=== PATIENT | female | born 1970 | race Caucasian/White ===

== ENCOUNTER 2019-04-30 15:37 | Observation (INO) ==
[2019-04-30 16:11] LABS: Basophils # 0.1 K/mcL (0.0-0.2); Basophils % 0.8 %; Eosinophils % 0.1 %; Hematocrit 37.7 % (35.3-44.9); Hemoglobin 13.3 g/dL (11.5-15.4); Immature Granulocytes % 0.3 % (0-4); Lymphocytes # 1.6 K/mcL (0.6-4.6); Lymphocytes % 22.7 %; Mean Corpuscular HGB Conc 35.3 g/dL (31.6-35.5); Mean Corpuscular Hemoglobin 32.6 pg (28.0-33.3); Mean Corpuscular Volume 92.4 fL (83.0-100.0); Mean Platelet Volume 9.4 fL (9.4-12.4); Monocytes # 0.5 K/mcL (0.0-1.3); Monocytes % 6.6 %; Platelet Count 232 K/mcL (140-400); Red Blood Count 4.08 M/mcL (3.82-4.97); Red Cell Distribution Width 11.9 % (11.5-14.5); Segmented Neutrophils % 69.5 %; White Blood Count 7.2 K/mcL (4.3-11.1)
[2019-04-30 16:29] LABS: Alanine Aminotransferase 9 Units/L (7-52); Albumin 3.8 g/dL (3.5-5.7); Albumin/Globulin Ratio 1.3 (1.1-2.2); Alkaline Phosphatase 82 Units/L (34-104); Aspartate Amino Transferase 18 Units/L (13-39); BUN/Creatinine Ratio 17 (6-26); Bilirubin,Direct 0.1 mg/dL (0.0-0.2); Bilirubin,Indirect 0.1 mg/dL (0.0-1.0); Bilirubin,Total 0.2 mg/dL (0.3-1.0); Blood Urea Nitrogen 13 mg/dL (6-20); Carbon Dioxide 26 mEq/L (23-29); Chloride 105 mEq/L (98-107); Creatine Kinase 768 Units/L (30-223); Globulin 2.9 g/dL (2.4-3.5); Glucose 102 mg/dL (70-105); Osmolality,Calculated 286 (280-300); Potassium 4.2 mEq/L (3.5-5.1); Sodium 138 mEq/L (136-145); Total Protein 6.7 g/dL (6.4-8.9); eGFR For African Americans > 60 (> 60); eGFR For Non-African Americans > 60 (> 60)
[2019-04-30] MEDS ORDERED: 0.9 % Sodium Chloride 1,000 ML IVC ONE ×2 (16:30→16:44)
[2019-04-30] MEDS ORDERED: Naloxone 0.4 MG/ML INJ IVP PRN (17:55)
[2019-04-30 18:15] LABS: Bilirubin,Urine Negative (Negative); Blood,Urine Negative (Negative); Clarity,Urine Cloudy (Clear); Color,Urine Yellow (Yellow); Glucose,Urine (UA) Normal (Normal); Ketones,Urine Negative (Negative); Leukocyte Esterase,Urine Negative (Negative); Nitrite,Urine Negative (Negative); Protein,Urine Negative (Neg-Trace); Specific Gravity,Urine 1.017 (1.010-1.025); Urobilinogen,Urine Normal (Normal)
[2019-04-30 18:17] LABS: Bacteria,Urine None Seen per hpf (None-Few); Hyaline Casts,Urine None Seen per lpf (None-Few); Squamous Epithelial Cell,Urine Many per lpf (None-Few); WBC,Urine 0-3 per hpf (0-3)
[2019-04-30] MEDS ORDERED: hydrOXYzine pamoate 25 MG CAPSULE PO PRN (18:23)
[2019-04-30 18:25] LABS: Amphetamine Screen,Urine Negative ng/mL (Cutoff=1000); Barbiturate Screen,Urine Negative ng/mL (Cutoff=200); Benzodiazepines Screen,Urine Positive ng/mL (Cutoff=200); Cannabinoid Screen,Urine Negative ng/mL (Cutoff = 50); Cocaine Screen,Urine Negative ng/mL (Cutoff= 300); Opiate Screen,Urine Negative ng/mL (Cutoff=300); Phencyclidine Screen,Urine Negative ng/mL (Cutoff=25)
[2019-04-30] MEDS: Nicotine 21 MG PATCH.TD24 TD SCH (20:28)
[2019-04-30] MEDS: Baclofen 10 MG TABLET PO SCH (20:29)
[2019-04-30] MEDS: carBAMazepine 200 MG TABLET PO SCH (20:29)
[2019-04-30] MEDS: Gabapentin 300 MG CAPSULE PO SCH (20:29)
[2019-04-30] MEDS: Diclofenac Sodium (24 HR) 100 MG TABLET PO SCH (20:29)
[2019-04-30] MEDS: *HR* Heparin 5,000 UNIT/ML VIAL SQ SCH (20:30)
[2019-04-30] MEDS ORDERED: cloNIDine HCl 0.1 MG TABLET PO SCH (21:00)
[2019-04-30] MEDS ORDERED: Melatonin 3 MG TABLET PO SCH (21:00)
[2019-05-01 02:34] LABS: Basophils % 0.9 %; Eosinophils % 0.2 %; Hematocrit 35.9 % (35.3-44.9); Hemoglobin 12.2 g/dL (11.5-15.4); Immature Granulocytes % 0.2 % (0-4); Lymphocytes # 1.5 K/mcL (0.6-4.6); Lymphocytes % 34.3 %; Mean Platelet Volume 10.4 fL (9.4-12.4); Monocytes # 0.4 K/mcL (0.0-1.3); Monocytes % 8.5 %; Neutrophils # 2.5 K/mcL (1.6-8.9); Platelet Count 169 K/mcL (140-400); Red Cell Distribution Width 12.1 % (11.5-14.5); Segmented Neutrophils % 55.9 %; White Blood Count 4.5 K/mcL (4.3-11.1)
[2019-05-01 02:46] LABS: BUN/Creatinine Ratio 17 (6-26); Blood Urea Nitrogen 13 mg/dL (6-20); Calcium 8.5 mg/dL (8.6-10.3); Carbon Dioxide 21 mEq/L (23-29); Chloride 110 mEq/L (98-107); Glucose 116 mg/dL (70-105); Osmolality,Calculated 291 (280-300); Potassium 4.3 mEq/L (3.5-5.1); Sodium 140 mEq/L (136-145); eGFR For African Americans > 60 (> 60); eGFR For Non-African Americans > 60 (> 60)
[2019-05-01 03:06] LABS: Platelet Estimate Normal (Normal)
[2019-05-01] MEDS: *HR* Heparin 5,000 UNIT/ML VIAL SQ SCH ×2 (06:24→14:21)
[2019-05-01] MEDS: Baclofen 10 MG TABLET PO SCH (08:49)
[2019-05-01] MEDS: Gabapentin 300 MG CAPSULE PO SCH (08:49)
[2019-05-01] MEDS: carBAMazepine 200 MG TABLET PO SCH (08:49)
[2019-05-01] MEDS: Diclofenac Sodium (24 HR) 100 MG TABLET PO SCH (08:50)
[2019-05-01] MEDS: Nicotine 21 MG PATCH.TD24 TD SCH (08:51)
[2019-05-01] MEDS ORDERED: BuPROPion XL (24 HR) 150 MG TABLET PO SCH (09:00)
[2019-05-01 12:00] VITALS: BP 130/82
== END 2019-05-01 14:47 | disposition home or self-care (01) ==
LOC: EMEROOARM 15:37 → 2ANU 15:37
PROVIDERS: ADMIT Internal Medicine; ATTEND Internal Medicine

== ENCOUNTER 2020-03-22 17:54 | Inpatient (IN) ==
[2020-03-22] MEDS ORDERED: *HR* OxyCODONE/APAP 5/325 TABLET PO ONE (18:25)
[2020-03-22] MEDS ORDERED: *HR* HYDROmorphone (PF) 1 MG/ML SYRINGE IVP ONE (19:55)
[2020-03-22 20:44] LABS: Basophils # 0.1 K/mcL (0.0-0.2); Basophils % 0.4 %; Eosinophils % 0.3 %; Hematocrit 37.6 % (35.3-44.9); Hemoglobin 12.4 g/dL (11.5-15.4); Immature Granulocytes % 0.4 % (0-4); Lymphocytes % 8.9 %; Mean Corpuscular Hemoglobin 30.7 pg (28.0-33.3); Mean Corpuscular Volume 93.1 fL (83.0-100.0); Mean Platelet Volume 9.3 fL (9.4-12.4); Monocytes # 0.4 K/mcL (0.0-1.3); Monocytes % 3.8 %; Neutrophils # 10.1 K/mcL (1.6-8.9); Nucleated Red Blood Cells 0.2 /100 WBC (0); Platelet Count 301 K/mcL (140-400); Red Blood Count 4.04 M/mcL (3.82-4.97); Red Cell Distribution Width 12.9 % (11.5-14.5); Segmented Neutrophils % 86.2 %; White Blood Count 11.7 K/mcL (4.3-11.1)
[2020-03-22 20:49] LABS: INR 1.1; Prothrombin Time 12.8 Seconds (9.4-12.1)
[2020-03-22 21:07] LABS: Alanine Aminotransferase 8 Units/L (7-52); Albumin 2.6 g/dL (3.5-5.7); Albumin/Globulin Ratio 1.1 (1.1-2.2); Alkaline Phosphatase 80 Units/L (34-104); Aspartate Amino Transferase 16 Units/L (13-39); BUN/Creatinine Ratio 18 (6-26); Bilirubin,Total 0.2 mg/dL (0.3-1.0); Blood Urea Nitrogen 7 mg/dL (6-20); Carbon Dioxide 18 mEq/L (23-29); Chloride 118 mEq/L (98-107); Globulin 2.3 g/dL (2.4-3.5); Glucose 89 mg/dL (70-105); Osmolality,Calculated 293 (280-300); Potassium 2.8 mEq/L (3.5-5.1); Sodium 143 mEq/L (136-145); Total Protein 4.9 g/dL (6.4-8.9); eGFR For African Americans > 60 (> 60); eGFR For Non-African Americans > 60 (> 60)
[2020-03-22 21:50] LABS: Adenovirus Not Detected (Not Detect); Coronavirus 229E Not Detected (Not Detect); Coronavirus HKU1 Not Detected (Not Detect); Coronavirus NL63 Not Detected (Not Detect); Coronavirus OC43 Not Detected (Not Detect); SARS-CoV-2 Not Detected (Not Detect)
[2020-03-22 21:51] LABS: Bordetella Pertussis Not Detected (Not Detect); Chlamydophila pneumoniae Not Detected (Not Detect); Human Metapneumovirus Not Detected (Not Detect); Human Rhinovirus/Enterovirus DETECTED (Not Detect); Influenza A Subtype 2009 H1 Not Detected (Not Detect); Influenza B Not Detected (Not Detect); Mycoplasma pneumoniae Not Detected (Not Detect); Parainfluenza Virus 1 Not Detected (Not Detect); Parainfluenza Virus 2 Not Detected (Not Detect); Parainfluenza Virus 3 Not Detected (Not Detect); Parainfluenza Virus 4 Not Detected (Not Detect); Respiratory Syncytial Virus Not Detected (Not Detect)
[2020-03-22] MEDS ORDERED: Naloxone 0.4 MG/ML INJ IVP PRN (22:17)
[2020-03-22] MEDS: Calcium Gluconate 1gm/50mL BAG IVPB SCH (22:37)
[2020-03-23] MEDS ORDERED: hydrOXYzine pamoate 25 MG CAPSULE PO PRN (00:38)
[2020-03-23] MEDS ORDERED: *HR* Heparin 5,000 UNIT/ML VIAL SQ ONE (00:45)
[2020-03-23] MEDS ORDERED: 0.9 % Sodium Chloride 1,000 ML IVC SCH (01:00)
[2020-03-23] MEDS: Calcium Gluconate 1gm/50mL BAG IVPB SCH (01:12)
[2020-03-23] MEDS: Melatonin 3 MG TABLET PO SCH ×2 (01:13→21:04)
[2020-03-23] MEDS: cloNIDine HCL 0.1 MG TABLET PO SCH ×2 (01:13→21:04)
[2020-03-23] MEDS: QUEtiapine Fumarate 100 MG TABLET PO SCH ×2 (01:13→21:04)
[2020-03-23] MEDS: carBAMazepine 200 MG TABLET PO SCH ×3 (01:14→21:04)
[2020-03-23] MEDS: Nicotine 21 MG PATCH.TD24 TD SCH (01:14)
[2020-03-23 01:16] LABS: Basophils % 0.3 %; Eosinophils % 0.1 %; Hematocrit 33.3 % (35.3-44.9); Hemoglobin 10.9 g/dL (11.5-15.4); Immature Granulocytes % 0.2 % (0-4); Lymphocytes # 1.2 K/mcL (0.6-4.6); Lymphocytes % 14.2 %; Mean Corpuscular HGB Conc 32.7 g/dL (31.6-35.5); Mean Corpuscular Hemoglobin 30.7 pg (28.0-33.3); Mean Corpuscular Volume 93.8 fL (83.0-100.0); Mean Platelet Volume 9.2 fL (9.4-12.4); Monocytes # 0.4 K/mcL (0.0-1.3); Monocytes % 4.9 %; Neutrophils # 6.9 K/mcL (1.6-8.9); Platelet Count 247 K/mcL (140-400); Red Blood Count 3.55 M/mcL (3.82-4.97); Red Cell Distribution Width 12.9 % (11.5-14.5); Segmented Neutrophils % 80.3 %; White Blood Count 8.6 K/mcL (4.3-11.1)
[2020-03-23 01:49] LABS: Alanine Aminotransferase 10 Units/L (7-52); Albumin 3.4 g/dL (3.5-5.7); Albumin/Globulin Ratio 1.1 (1.1-2.2); Alkaline Phosphatase 106 Units/L (34-104); Aspartate Amino Transferase 16 Units/L (13-39); BUN/Creatinine Ratio 15 (6-26); Bilirubin,Total 0.4 mg/dL (0.3-1.0); Blood Urea Nitrogen 11 mg/dL (6-20); Calcium 8.6 mg/dL (8.6-10.3); Carbon Dioxide 28 mEq/L (23-29); Chloride 106 mEq/L (98-107); Globulin 3.2 g/dL (2.4-3.5); Glucose 174 mg/dL (70-105); Osmolality,Calculated 300 (280-300); Potassium 3.7 mEq/L (3.5-5.1); Sodium 143 mEq/L (136-145); Total Protein 6.6 g/dL (6.4-8.9); eGFR For African Americans > 60 (> 60); eGFR For Non-African Americans > 60 (> 60)
[2020-03-23] MEDS ORDERED: Ondansetron 4 MG/2 ML VIAL IVP PRN (02:33)
[2020-03-23 05:42] LABS: Amphetamine Screen,Urine Negative ng/mL (Cutoff=1000); Barbiturate Screen,Urine Negative ng/mL (Cutoff=200); Benzodiazepines Screen,Urine Negative ng/mL (Cutoff=200); Cannabinoid Screen,Urine Positive ng/mL (Cutoff = 50); Cocaine Screen,Urine Negative ng/mL (Cutoff= 300); Opiate Screen,Urine Positive ng/mL (Cutoff=300); Phencyclidine Screen,Urine Negative ng/mL (Cutoff=25)
[2020-03-23] MEDS: Gabapentin 300 MG CAPSULE PO SCH ×2 (15:22→21:04)
[2020-03-23] MEDS: Methadone Oral Concentrate 50 MG/5 ML UDC PO SCH (15:42)
[2020-03-23] MEDS ORDERED: Perflutren Lipid Microsphere 1.3 ML in 0.9 % Sodium Chloride 8.7 ML IVP PRN (16:29)
[2020-03-24] MEDS: Nicotine 21 MG PATCH.TD24 TD SCH (00:30)
[2020-03-24] MEDS: Gabapentin 300 MG CAPSULE PO SCH ×3 (08:27→19:48)
[2020-03-24] MEDS: Cholecalciferol (D-3) 1,000 UNIT (25MCG) TABLET PO SCH (08:27)
[2020-03-24] MEDS: carBAMazepine 200 MG TABLET PO SCH ×2 (08:27→19:47)
[2020-03-24] MEDS: Methadone Oral Concentrate 50 MG/5 ML UDC PO SCH (08:29)
[2020-03-24] MEDS: predniSONE 10 MG TABLET PO SCH (09:39)
[2020-03-24] MEDS: BuPROPion XL (24 HR) 150 MG TABLET PO SCH (09:39)
[2020-03-24] MEDS: Baclofen 10 MG TABLET PO SCH ×3 (09:41→21:31)
[2020-03-24 10:04] LABS: Basophils # 0.1 K/mcL (0.0-0.2); Basophils % 0.9 %; Eosinophils # 0.2 K/mcL (0.0-0.6); Eosinophils % 2.2 %; Immature Granulocytes % 0.3 % (0-4); Lymphocytes # 1.5 K/mcL (0.6-4.6); Lymphocytes % 20.9 %; Mean Corpuscular HGB Conc 33.3 g/dL (31.6-35.5); Mean Corpuscular Hemoglobin 31.3 pg (28.0-33.3); Mean Corpuscular Volume 93.8 fL (83.0-100.0); Mean Platelet Volume 9.1 fL (9.4-12.4); Monocytes # 0.5 K/mcL (0.0-1.3); Monocytes % 6.5 %; Neutrophils # 4.8 K/mcL (1.6-8.9); Platelet Count 277 K/mcL (140-400); Red Blood Count 3.84 M/mcL (3.82-4.97); Red Cell Distribution Width 13.2 % (11.5-14.5); Segmented Neutrophils % 69.2 %
[2020-03-24 10:43] LABS: BUN/Creatinine Ratio 17 (6-26); Blood Urea Nitrogen 12 mg/dL (6-20); Calcium 9.2 mg/dL (8.6-10.3); Carbon Dioxide 27 mEq/L (23-29); Chloride 105 mEq/L (98-107); Glucose 135 mg/dL (70-105); Osmolality,Calculated 290 (280-300); Phosphorous 3.6 mg/dL (2.7-4.5); Potassium 3.8 mEq/L (3.5-5.1); Sodium 139 mEq/L (136-145); eGFR For African Americans > 60 (> 60); eGFR For Non-African Americans > 60 (> 60)
[2020-03-24 10:45] LABS: Vancomycin,Trough < 2 mcg/mL (5-10)
[2020-03-24] MEDS: (Brexpiprazole [Rexulti] 1 MG) PO SCH (11:59)
[2020-03-24] MEDS ORDERED: Acetaminophen 325 MG TABLET PO PRN (15:29)
[2020-03-24] MEDS: Melatonin 3 MG TABLET PO SCH (19:47)
[2020-03-24] MEDS: cloNIDine HCL 0.1 MG TABLET PO SCH (19:47)
[2020-03-24] MEDS ORDERED: QUEtiapine Fumarate 100 MG TABLET PO SCH (21:00)
[2020-03-24] MEDS ORDERED: *HR* Heparin 5,000 UNIT/ML VIAL SQ SCH (22:00)
[2020-03-25] MEDS: Nicotine 21 MG PATCH.TD24 TD SCH (08:20)
[2020-03-25] MEDS: Methadone Oral Concentrate 50 MG/5 ML UDC PO SCH (08:34)
[2020-03-25] MEDS: Cholecalciferol (D-3) 1,000 UNIT (25MCG) TABLET PO SCH (08:37)
[2020-03-25] MEDS: predniSONE 10 MG TABLET PO SCH (08:37)
[2020-03-25] MEDS: carBAMazepine 200 MG TABLET PO SCH ×2 (08:38→20:13)
[2020-03-25] MEDS: Baclofen 10 MG TABLET PO SCH ×3 (08:39→20:15)
[2020-03-25] MEDS: Gabapentin 300 MG CAPSULE PO SCH ×3 (08:39→20:13)
[2020-03-25] MEDS: BuPROPion XL (24 HR) 150 MG TABLET PO SCH (08:39)
[2020-03-25] MEDS: (Brexpiprazole [Rexulti] 1 MG) PO SCH (08:40)
[2020-03-25] MEDS ORDERED: Famotidine 20 MG/2 ML VIAL IVP ONE (09:15)
[2020-03-25] MEDS ORDERED: Dexamethasone 4 MG/ML VIAL IVP ONE (09:15)
[2020-03-25] MEDS ORDERED: *HR* HYDROmorphone PF 0.5 MG/0.5 ML SYRINGE IVP PRN (09:15)
[2020-03-25] MEDS ORDERED: Albuterol 2.5 MG/3 ML NEBULIZER IH PRN (09:15)
[2020-03-25] MEDS ORDERED: *HR* FentaNYL (PF) 100 MCG/2 ML VIAL IVP PRN (09:15)
[2020-03-25] MEDS: Ipratropium/Albuterol Neb 3 ML IH SCH ×3 (11:53→21:34)
[2020-03-25] MEDS ORDERED: *HR* FentaNYL (PF) 100 MCG/2 ML VIAL ONE (11:54)
[2020-03-25] MEDS ORDERED: *HR* Midazolam HCl 2 MG/2 ML VIAL ONE (11:55)
[2020-03-25] MEDS ORDERED: *HR* Propofol 200 MG/20 ML VIAL IVP ONE ×2 (13:18→15:20)
[2020-03-25] MEDS ORDERED: Dexamethasone 4 MG/ML VIAL ONE (13:19)
[2020-03-25] MEDS ORDERED: Ondansetron 4 MG/2 ML VIAL ONE (13:19)
[2020-03-25] MEDS ORDERED: Lidocaine -MPF 2% 2 ML VIAL ONE (13:19)
[2020-03-25] MEDS ORDERED: Ropivacaine/PF 0.5% 30 ML VIAL ONE (13:20)
[2020-03-25] MEDS ORDERED: ROPIVACAINE/PF/NS 0.25% 1 EACH SYRINGE INTRAART ONE (13:27)
[2020-03-25] MEDS ORDERED: Lidocaine 1% 20 ML MDV ONE (13:31)
[2020-03-25] MEDS ORDERED: Clindamycin 900 MG/50 ML 900 MG/50 ML IV.SOLN IVPB ONE ×2 (13:46→13:55)
[2020-03-25] MEDS ORDERED: *HR* PHENYLEPHRINE 1,000 MCG/10 ML SYRINGE IVP ONE (14:45)
[2020-03-25] MEDS ORDERED: *HR* HYDROMORPHONE 2 MG/ML VIAL ONE (15:22)
[2020-03-25] MEDS ORDERED: Perflutren Lipid Microsphere 1.3 ML in 0.9 % Sodium Chloride 8.7 ML IVP PRN (18:00)
[2020-03-25] MEDS ORDERED: Ondansetron 4 MG/2 ML VIAL IVP PRN (18:00)
[2020-03-25] MEDS ORDERED: Naloxone 0.4 MG/ML INJ IVP PRN (18:00)
[2020-03-25] MEDS: cloNIDine HCL 0.1 MG TABLET PO SCH (20:14)
[2020-03-25] MEDS: QUEtiapine Fumarate 100 MG TABLET PO SCH (20:14)
[2020-03-25] MEDS: Melatonin 3 MG TABLET PO SCH (20:14)
[2020-03-26] MEDS: Nicotine 21 MG PATCH.TD24 TD SCH (02:59)
[2020-03-26 03:35] LABS: Hematocrit 34.1 % (35.3-44.9); Mean Corpuscular HGB Conc 32.3 g/dL (31.6-35.5); Mean Corpuscular Hemoglobin 30.8 pg (28.0-33.3); Mean Corpuscular Volume 95.5 fL (83.0-100.0); Mean Platelet Volume 9.1 fL (9.4-12.4); Platelet Count 279 K/mcL (140-400); Red Blood Count 3.57 M/mcL (3.82-4.97); Red Cell Distribution Width 12.9 % (11.5-14.5); White Blood Count 9.8 K/mcL (4.3-11.1)
[2020-03-26 03:59] LABS: BUN/Creatinine Ratio 23 (6-26); Blood Urea Nitrogen 19 mg/dL (6-20); Calcium 8.7 mg/dL (8.6-10.3); Carbon Dioxide 28 mEq/L (23-29); Chloride 102 mEq/L (98-107); Glucose 123 mg/dL (70-105); Magnesium 2.1 mg/dL (1.6-2.6); Osmolality,Calculated 290 (280-300); Potassium 4.3 mEq/L (3.5-5.1); Sodium 138 mEq/L (136-145); eGFR For African Americans > 60 (> 60); eGFR For Non-African Americans > 60 (> 60)
[2020-03-26] MEDS: Ipratropium/Albuterol Neb 3 ML IH SCH ×4 (04:17→22:24)
[2020-03-26] MEDS: Baclofen 10 MG TABLET PO SCH ×3 (08:26→20:33)
[2020-03-26] MEDS: Gabapentin 300 MG CAPSULE PO SCH ×3 (08:26→20:33)
[2020-03-26] MEDS: Cholecalciferol (D-3) 1,000 UNIT (25MCG) TABLET PO SCH (08:26)
[2020-03-26] MEDS: Methadone Oral Concentrate 50 MG/5 ML UDC PO SCH (08:26)
[2020-03-26] MEDS: carBAMazepine 200 MG TABLET PO SCH ×2 (08:27→20:33)
[2020-03-26] MEDS: BuPROPion XL (24 HR) 150 MG TABLET PO SCH (08:27)
[2020-03-26] MEDS: predniSONE 10 MG TABLET PO SCH (08:27)
[2020-03-26] MEDS: (Brexpiprazole [Rexulti] 1 MG) PO SCH (08:29)
[2020-03-26] MEDS: hydrOXYzine pamoate 25 MG CAPSULE PO PRN (14:09)
[2020-03-26] MEDS: cloNIDine HCL 0.1 MG TABLET PO SCH (20:32)
[2020-03-26] MEDS: QUEtiapine Fumarate 100 MG TABLET PO SCH (20:33)
[2020-03-26] MEDS: Melatonin 3 MG TABLET PO SCH (20:33)
[2020-03-27] MEDS: Nicotine 21 MG PATCH.TD24 TD SCH (00:19)
[2020-03-27] MEDS: Acetaminophen 325 MG TABLET PO PRN (02:53)
[2020-03-27] MEDS: Ipratropium/Albuterol Neb 3 ML IH SCH ×2 (04:06→10:55)
[2020-03-27 06:34] LABS: Hematocrit 37.5 % (35.3-44.9); Hemoglobin 11.9 g/dL (11.5-15.4); Mean Corpuscular HGB Conc 31.7 g/dL (31.6-35.5); Mean Corpuscular Hemoglobin 30.3 pg (28.0-33.3); Mean Corpuscular Volume 95.4 fL (83.0-100.0); Platelet Count 300 K/mcL (140-400); Red Blood Count 3.93 M/mcL (3.82-4.97); Red Cell Distribution Width 13.3 % (11.5-14.5)
[2020-03-27 07:28] LABS: BUN/Creatinine Ratio 30 (6-26); Blood Urea Nitrogen 22 mg/dL (6-20); Calcium 9.4 mg/dL (8.6-10.3); Carbon Dioxide 30 mEq/L (23-29); Chloride 101 mEq/L (98-107); Glucose 98 mg/dL (70-105); Osmolality,Calculated 289 (280-300); Potassium 4.1 mEq/L (3.5-5.1); Sodium 138 mEq/L (136-145); eGFR For African Americans > 60 (> 60); eGFR For Non-African Americans > 60 (> 60)
[2020-03-27] MEDS: BuPROPion XL (24 HR) 150 MG TABLET PO SCH (08:45)
[2020-03-27] MEDS: Methadone Oral Concentrate 50 MG/5 ML UDC PO SCH (08:45)
[2020-03-27] MEDS: Gabapentin 300 MG CAPSULE PO SCH ×3 (08:45→20:02)
[2020-03-27] MEDS: Cholecalciferol (D-3) 1,000 UNIT (25MCG) TABLET PO SCH (08:45)
[2020-03-27] MEDS: Baclofen 10 MG TABLET PO SCH ×3 (08:46→20:03)
[2020-03-27] MEDS: predniSONE 10 MG TABLET PO SCH (08:46)
[2020-03-27] MEDS: carBAMazepine 200 MG TABLET PO SCH ×2 (08:46→20:03)
[2020-03-27] MEDS: (Brexpiprazole [Rexulti] 1 MG) PO SCH (08:48)
[2020-03-27] MEDS: hydrOXYzine pamoate 25 MG CAPSULE PO PRN (15:24)
[2020-03-27] MEDS ORDERED: Ipratropium/Albuterol Neb 3 ML IH PRN (15:27)
[2020-03-27] MEDS: *HR* Heparin 5,000 UNIT/ML VIAL SQ SCH (17:03)
[2020-03-27] MEDS: QUEtiapine Fumarate 100 MG TABLET PO SCH (20:02)
[2020-03-27] MEDS: cloNIDine HCL 0.1 MG TABLET PO SCH (20:02)
[2020-03-27] MEDS: Melatonin 3 MG TABLET PO SCH (20:02)
[2020-03-28] MEDS: Nicotine 21 MG PATCH.TD24 TD SCH ×2 (00:26→23:57)
[2020-03-28] MEDS: Acetaminophen 325 MG TABLET PO PRN (04:13)
[2020-03-28] MEDS: *HR* Heparin 5,000 UNIT/ML VIAL SQ SCH ×2 (05:08→17:30)
[2020-03-28 05:59] LABS: Hematocrit 40.9 % (35.3-44.9); Hemoglobin 13.4 g/dL (11.5-15.4); Mean Corpuscular HGB Conc 32.8 g/dL (31.6-35.5); Mean Corpuscular Hemoglobin 31.8 pg (28.0-33.3); Mean Corpuscular Volume 97.1 fL (83.0-100.0); Mean Platelet Volume 8.9 fL (9.4-12.4); Platelet Count 316 K/mcL (140-400); Red Blood Count 4.21 M/mcL (3.82-4.97); Red Cell Distribution Width 13.2 % (11.5-14.5); White Blood Count 9.1 K/mcL (4.3-11.1)
[2020-03-28 06:26] LABS: BUN/Creatinine Ratio 35 (6-26); Blood Urea Nitrogen 26 mg/dL (6-20); Calcium 9.7 mg/dL (8.6-10.3); Carbon Dioxide 26 mEq/L (23-29); Chloride 99 mEq/L (98-107); Glucose 107 mg/dL (70-105); Osmolality,Calculated 283 (280-300); Potassium 4.1 mEq/L (3.5-5.1); Sodium 134 mEq/L (136-145); eGFR For African Americans > 60 (> 60); eGFR For Non-African Americans > 60 (> 60)
[2020-03-28] MEDS: Ketorolac 15 MG/ML VIAL IVP PRN ×3 (06:35→20:42)
[2020-03-28] MEDS: BuPROPion XL (24 HR) 150 MG TABLET PO SCH (09:15)
[2020-03-28] MEDS: Baclofen 10 MG TABLET PO SCH ×3 (09:15→19:54)
[2020-03-28] MEDS: carBAMazepine 200 MG TABLET PO SCH ×2 (09:16→19:54)
[2020-03-28] MEDS: Gabapentin 300 MG CAPSULE PO SCH ×3 (09:16→19:55)
[2020-03-28] MEDS: Cholecalciferol (D-3) 1,000 UNIT (25MCG) TABLET PO SCH (09:18)
[2020-03-28] MEDS: predniSONE 10 MG TABLET PO SCH (09:19)
[2020-03-28] MEDS: Methadone Oral Concentrate 50 MG/5 ML UDC PO SCH (10:20)
[2020-03-28] MEDS: hydrOXYzine pamoate 25 MG CAPSULE PO PRN (10:21)
[2020-03-28] MEDS: (Brexpiprazole [Rexulti] 1 MG) PO SCH ×2 (10:22→10:39)
[2020-03-28] MEDS: QUEtiapine Fumarate 100 MG TABLET PO SCH (19:54)
[2020-03-28] MEDS: cloNIDine HCL 0.1 MG TABLET PO SCH (19:54)
[2020-03-28] MEDS: Lactobacillus 1 EACH CAP.SPRINK PO SCH (19:55)
[2020-03-28] MEDS: Melatonin 3 MG TABLET PO SCH (19:55)
[2020-03-29] MEDS: *HR* Heparin 5,000 UNIT/ML VIAL SQ SCH ×2 (05:28→17:00)
[2020-03-29] MEDS: Ketorolac 15 MG/ML VIAL IVP PRN ×3 (05:31→18:02)
[2020-03-29] MEDS: Methadone Oral Concentrate 50 MG/5 ML UDC PO SCH (08:46)
[2020-03-29] MEDS: Lactobacillus 1 EACH CAP.SPRINK PO SCH ×2 (08:47→20:27)
[2020-03-29] MEDS: Gabapentin 300 MG CAPSULE PO SCH ×3 (08:48→20:27)
[2020-03-29] MEDS: carBAMazepine 200 MG TABLET PO SCH ×2 (08:48→20:27)
[2020-03-29] MEDS: Cholecalciferol (D-3) 1,000 UNIT (25MCG) TABLET PO SCH (08:49)
[2020-03-29] MEDS: predniSONE 10 MG TABLET PO SCH (08:50)
[2020-03-29] MEDS: BuPROPion XL (24 HR) 150 MG TABLET PO SCH (08:52)
[2020-03-29] MEDS: (Brexpiprazole [Rexulti] 1 MG) PO SCH (08:54)
[2020-03-29] MEDS: Baclofen 10 MG TABLET PO SCH ×3 (08:54→20:27)
[2020-03-29] MEDS: hydrOXYzine pamoate 25 MG CAPSULE PO PRN (11:48)
[2020-03-29] MEDS: cloNIDine HCL 0.1 MG TABLET PO SCH (20:26)
[2020-03-29] MEDS: QUEtiapine Fumarate 100 MG TABLET PO SCH (20:26)
[2020-03-29] MEDS: Melatonin 3 MG TABLET PO SCH (20:26)
[2020-03-30] MEDS: Ketorolac 15 MG/ML VIAL IVP PRN ×4 (00:23→22:41)
[2020-03-30] MEDS: Nicotine 21 MG PATCH.TD24 TD SCH ×2 (00:23→23:42)
[2020-03-30] MEDS: *HR* Heparin 5,000 UNIT/ML VIAL SQ SCH ×2 (05:56→18:40)
[2020-03-30] MEDS: Methadone Oral Concentrate 50 MG/5 ML UDC PO SCH (08:19)
[2020-03-30] MEDS: carBAMazepine 200 MG TABLET PO SCH ×2 (08:20→20:14)
[2020-03-30] MEDS: Cholecalciferol (D-3) 1,000 UNIT (25MCG) TABLET PO SCH (08:20)
[2020-03-30] MEDS: predniSONE 10 MG TABLET PO SCH (08:20)
[2020-03-30] MEDS: Gabapentin 300 MG CAPSULE PO SCH ×3 (08:21→20:16)
[2020-03-30] MEDS: Lactobacillus 1 EACH CAP.SPRINK PO SCH ×2 (08:21→20:15)
[2020-03-30] MEDS: Baclofen 10 MG TABLET PO SCH ×3 (08:23→20:16)
[2020-03-30] MEDS: BuPROPion XL (24 HR) 150 MG TABLET PO SCH (08:24)
[2020-03-30] MEDS: hydrOXYzine pamoate 25 MG CAPSULE PO PRN (12:47)
[2020-03-30] MEDS: (Brexpiprazole [Rexulti] 1 MG) PO SCH (16:26)
[2020-03-30] MEDS: QUEtiapine Fumarate 100 MG TABLET PO SCH (20:13)
[2020-03-30] MEDS: Melatonin 3 MG TABLET PO SCH (20:13)
[2020-03-30] MEDS: cloNIDine HCL 0.1 MG TABLET PO SCH (20:15)
[2020-03-31 05:42] LABS: BUN/Creatinine Ratio 42 (6-26); Blood Urea Nitrogen 28 mg/dL (6-20); Calcium 9.3 mg/dL (8.6-10.3); Carbon Dioxide 29 mEq/L (23-29); Chloride 103 mEq/L (98-107); Glucose 129 mg/dL (70-105); Osmolality,Calculated 293 (280-300); Sodium 138 mEq/L (136-145); eGFR For African Americans > 60 (> 60); eGFR For Non-African Americans > 60 (> 60)
[2020-03-31] MEDS: *HR* Heparin 5,000 UNIT/ML VIAL SQ SCH ×2 (06:10→18:32)
[2020-03-31] MEDS: Ketorolac 15 MG/ML VIAL IVP PRN ×3 (06:15→20:07)
[2020-03-31 06:50] LABS: Hematocrit 35.9 % (35.3-44.9); Hemoglobin 11.6 g/dL (11.5-15.4); Mean Corpuscular HGB Conc 32.3 g/dL (31.6-35.5); Mean Corpuscular Hemoglobin 31.4 pg (28.0-33.3); Mean Platelet Volume 9.2 fL (9.4-12.4); Platelet Count 326 K/mcL (140-400); White Blood Count 7.8 K/mcL (4.3-11.1)
[2020-03-31] MEDS: BuPROPion XL (24 HR) 150 MG TABLET PO SCH (09:42)
[2020-03-31] MEDS: Baclofen 10 MG TABLET PO SCH ×3 (09:42→20:06)
[2020-03-31] MEDS: Methadone Oral Concentrate 50 MG/5 ML UDC PO SCH (09:42)
[2020-03-31] MEDS: Lactobacillus 1 EACH CAP.SPRINK PO SCH ×2 (09:42→20:06)
[2020-03-31] MEDS: Gabapentin 300 MG CAPSULE PO SCH ×3 (09:43→20:07)
[2020-03-31] MEDS: predniSONE 10 MG TABLET PO SCH (09:43)
[2020-03-31] MEDS: Cholecalciferol (D-3) 1,000 UNIT (25MCG) TABLET PO SCH (09:44)
[2020-03-31] MEDS: carBAMazepine 200 MG TABLET PO SCH ×2 (09:44→20:06)
[2020-03-31] MEDS: (Brexpiprazole [Rexulti] 1 MG) PO SCH (12:51)
[2020-03-31] MEDS: hydrOXYzine pamoate 25 MG CAPSULE PO PRN ×2 (12:51→20:07)
[2020-03-31] MEDS: Melatonin 3 MG TABLET PO SCH (20:05)
[2020-03-31] MEDS: QUEtiapine Fumarate 100 MG TABLET PO SCH (20:05)
[2020-03-31] MEDS: cloNIDine HCL 0.1 MG TABLET PO SCH (20:06)
[2020-04-01] MEDS: Nicotine 21 MG PATCH.TD24 TD SCH (00:01)
[2020-04-01] MEDS: Ketorolac 15 MG/ML VIAL IVP PRN ×3 (04:16→17:14)
[2020-04-01] MEDS: *HR* Heparin 5,000 UNIT/ML VIAL SQ SCH ×2 (04:16→17:16)
[2020-04-01] MEDS: Lactobacillus 1 EACH CAP.SPRINK PO SCH ×2 (10:57→20:33)
[2020-04-01] MEDS: Methadone Oral Concentrate 50 MG/5 ML UDC PO SCH (10:57)
[2020-04-01] MEDS: Baclofen 10 MG TABLET PO SCH ×3 (10:58→20:33)
[2020-04-01] MEDS: BuPROPion XL (24 HR) 150 MG TABLET PO SCH (10:58)
[2020-04-01] MEDS: carBAMazepine 200 MG TABLET PO SCH ×2 (10:59→20:32)
[2020-04-01] MEDS: predniSONE 10 MG TABLET PO SCH (10:59)
[2020-04-01] MEDS: Gabapentin 300 MG CAPSULE PO SCH ×3 (10:59→20:36)
[2020-04-01] MEDS: Cholecalciferol (D-3) 1,000 UNIT (25MCG) TABLET PO SCH (10:59)
[2020-04-01] MEDS: hydrOXYzine pamoate 25 MG CAPSULE PO PRN ×2 (11:07→20:40)
[2020-04-01] MEDS: QUEtiapine Fumarate 100 MG TABLET PO SCH (20:34)
[2020-04-01] MEDS: Melatonin 3 MG TABLET PO SCH (20:35)
[2020-04-01] MEDS: cloNIDine HCL 0.1 MG TABLET PO SCH (20:37)
[2020-04-01] MEDS: (Brexpiprazole [Rexulti] 1 MG) PO SCH (20:42)
[2020-04-02] MEDS: Nicotine 21 MG PATCH.TD24 TD SCH ×2 (00:11→23:38)
[2020-04-02] MEDS: Ketorolac 15 MG/ML VIAL IVP PRN ×2 (00:14→06:18)
[2020-04-02] MEDS: Acetaminophen 325 MG TABLET PO PRN ×3 (04:03→23:43)
[2020-04-02] MEDS: *HR* Heparin 5,000 UNIT/ML VIAL SQ SCH ×2 (06:11→17:38)
[2020-04-02] MEDS: Gabapentin 300 MG CAPSULE PO SCH ×3 (08:51→20:33)
[2020-04-02] MEDS: predniSONE 10 MG TABLET PO SCH (08:51)
[2020-04-02] MEDS: BuPROPion XL (24 HR) 150 MG TABLET PO SCH (08:51)
[2020-04-02] MEDS: carBAMazepine 200 MG TABLET PO SCH ×2 (08:51→20:32)
[2020-04-02] MEDS: Baclofen 10 MG TABLET PO SCH ×3 (08:51→20:32)
[2020-04-02] MEDS: Cholecalciferol (D-3) 1,000 UNIT (25MCG) TABLET PO SCH (08:52)
[2020-04-02] MEDS: Lactobacillus 1 EACH CAP.SPRINK PO SCH ×2 (08:52→20:32)
[2020-04-02] MEDS: Methadone Oral Concentrate 50 MG/5 ML UDC PO SCH (08:52)
[2020-04-02] MEDS: hydrOXYzine pamoate 25 MG CAPSULE PO PRN ×2 (10:35→18:26)
[2020-04-02] MEDS: (Brexpiprazole [Rexulti] 1 MG) PO SCH (12:00)
[2020-04-02] MEDS: cloNIDine HCL 0.1 MG TABLET PO SCH (20:31)
[2020-04-02] MEDS: QUEtiapine Fumarate 100 MG TABLET PO SCH (20:33)
[2020-04-02] MEDS: Melatonin 3 MG TABLET PO SCH (20:33)
[2020-04-03] MEDS: *HR* Heparin 5,000 UNIT/ML VIAL SQ SCH ×2 (06:07→17:12)
[2020-04-03] MEDS: hydrOXYzine pamoate 25 MG CAPSULE PO PRN ×2 (08:23→17:12)
[2020-04-03] MEDS: BuPROPion XL (24 HR) 150 MG TABLET PO SCH (08:24)
[2020-04-03] MEDS: carBAMazepine 200 MG TABLET PO SCH ×2 (08:24→20:50)
[2020-04-03] MEDS: Lactobacillus 1 EACH CAP.SPRINK PO SCH ×2 (08:24→20:50)
[2020-04-03] MEDS: Cholecalciferol (D-3) 1,000 UNIT (25MCG) TABLET PO SCH (08:24)
[2020-04-03] MEDS: Baclofen 10 MG TABLET PO SCH ×3 (08:24→20:50)
[2020-04-03] MEDS: Gabapentin 300 MG CAPSULE PO SCH ×3 (08:24→20:50)
[2020-04-03] MEDS: Methadone Oral Concentrate 50 MG/5 ML UDC PO SCH (08:25)
[2020-04-03] MEDS: QUEtiapine Fumarate 100 MG TABLET PO SCH (20:49)
[2020-04-03] MEDS: Melatonin 3 MG TABLET PO SCH (20:49)
[2020-04-03] MEDS: cloNIDine HCL 0.1 MG TABLET PO SCH (20:50)
[2020-04-03] MEDS: (Brexpiprazole [Rexulti] 1 MG) PO SCH (20:51)
[2020-04-04] MEDS: Nicotine 21 MG PATCH.TD24 TD SCH ×2 (00:41→23:37)
[2020-04-04] MEDS: Acetaminophen 325 MG TABLET PO PRN (06:06)
[2020-04-04] MEDS: *HR* Heparin 5,000 UNIT/ML VIAL SQ SCH ×2 (06:07→17:15)
[2020-04-04 07:57] LABS: Hematocrit 37.7 % (35.3-44.9); Hemoglobin 12.3 g/dL (11.5-15.4); Mean Corpuscular HGB Conc 32.6 g/dL (31.6-35.5); Mean Corpuscular Hemoglobin 31.4 pg (28.0-33.3); Mean Corpuscular Volume 96.2 fL (83.0-100.0); Mean Platelet Volume 9.1 fL (9.4-12.4); Platelet Count 296 K/mcL (140-400); Red Blood Count 3.92 M/mcL (3.82-4.97); Red Cell Distribution Width 12.8 % (11.5-14.5); White Blood Count 8.9 K/mcL (4.3-11.1)
[2020-04-04 08:17] LABS: BUN/Creatinine Ratio 29 (6-26); Blood Urea Nitrogen 25 mg/dL (6-20); Calcium 9.9 mg/dL (8.6-10.3); Carbon Dioxide 27 mEq/L (23-29); Chloride 100 mEq/L (98-107); Glucose 119 mg/dL (70-105); Magnesium 1.9 mg/dL (1.6-2.6); Osmolality,Calculated 286 (280-300); Phosphorous 4.6 mg/dL (2.7-4.5); Potassium 4.2 mEq/L (3.5-5.1); Sodium 135 mEq/L (136-145); eGFR For African Americans > 60 (> 60); eGFR For Non-African Americans > 60 (> 60)
[2020-04-04] MEDS: BuPROPion XL (24 HR) 150 MG TABLET PO SCH (08:38)
[2020-04-04] MEDS: carBAMazepine 200 MG TABLET PO SCH ×2 (08:39→20:20)
[2020-04-04] MEDS: Cholecalciferol (D-3) 1,000 UNIT (25MCG) TABLET PO SCH (08:39)
[2020-04-04] MEDS: Lactobacillus 1 EACH CAP.SPRINK PO SCH ×2 (08:39→20:19)
[2020-04-04] MEDS: Gabapentin 300 MG CAPSULE PO SCH ×3 (08:39→20:19)
[2020-04-04] MEDS: Methadone Oral Concentrate 50 MG/5 ML UDC PO SCH (08:41)
[2020-04-04] MEDS: Baclofen 10 MG TABLET PO SCH ×3 (08:41→20:20)
[2020-04-04] MEDS: hydrOXYzine pamoate 25 MG CAPSULE PO PRN ×3 (08:42→23:37)
[2020-04-04] MEDS: QUEtiapine Fumarate 100 MG TABLET PO SCH (20:19)
[2020-04-04] MEDS: Melatonin 3 MG TABLET PO SCH (20:19)
[2020-04-04] MEDS: cloNIDine HCL 0.1 MG TABLET PO SCH (20:20)
[2020-04-04] MEDS: (Brexpiprazole [Rexulti] 1 MG) PO SCH (23:33)
[2020-04-05] MEDS: *HR* Heparin 5,000 UNIT/ML VIAL SQ SCH (05:34)
[2020-04-05 07:30] LABS: BUN/Creatinine Ratio 31 (6-26); Blood Urea Nitrogen 23 mg/dL (6-20); Calcium 9.1 mg/dL (8.6-10.3); Carbon Dioxide 30 mEq/L (23-29); Chloride 101 mEq/L (98-107); Glucose 105 mg/dL (70-105); Magnesium 1.8 mg/dL (1.6-2.6); Osmolality,Calculated 288 (280-300); Phosphorous 3.6 mg/dL (2.7-4.5); Potassium 4.1 mEq/L (3.5-5.1); Sodium 137 mEq/L (136-145); eGFR For African Americans > 60 (> 60); eGFR For Non-African Americans > 60 (> 60)
[2020-04-05] MEDS: BuPROPion XL (24 HR) 150 MG TABLET PO SCH (08:51)
[2020-04-05] MEDS: Baclofen 10 MG TABLET PO SCH ×3 (08:51→20:11)
[2020-04-05] MEDS: Methadone Oral Concentrate 50 MG/5 ML UDC PO SCH (08:52)
[2020-04-05] MEDS: hydrOXYzine pamoate 25 MG CAPSULE PO PRN ×2 (08:52→17:16)
[2020-04-05] MEDS: Cholecalciferol (D-3) 1,000 UNIT (25MCG) TABLET PO SCH (08:52)
[2020-04-05] MEDS: Lactobacillus 1 EACH CAP.SPRINK PO SCH ×2 (08:52→20:11)
[2020-04-05] MEDS: Gabapentin 300 MG CAPSULE PO SCH ×3 (08:52→20:11)
[2020-04-05] MEDS: carBAMazepine 200 MG TABLET PO SCH ×2 (08:52→20:11)
[2020-04-05] MEDS: Acetaminophen 325 MG TABLET PO PRN (15:27)
[2020-04-05] MEDS: cloNIDine HCL 0.1 MG TABLET PO SCH (20:10)
[2020-04-05] MEDS: Melatonin 3 MG TABLET PO SCH (20:11)
[2020-04-05] MEDS: QUEtiapine Fumarate 100 MG TABLET PO SCH (20:12)
[2020-04-05] MEDS: (Brexpiprazole [Rexulti] 1 MG) PO SCH (20:21)
[2020-04-05] MEDS: Nicotine 21 MG PATCH.TD24 TD SCH (23:52)
[2020-04-06 00:14] LABS: Adenovirus Not Detected (Not Detect); Bordetella Pertussis Not Detected (Not Detect); Chlamydophila pneumoniae Not Detected (Not Detect); Coronavirus 229E Not Detected (Not Detect); Coronavirus HKU1 Not Detected (Not Detect); Coronavirus NL63 Not Detected (Not Detect); Coronavirus OC43 Not Detected (Not Detect); Human Metapneumovirus Not Detected (Not Detect); Human Rhinovirus/Enterovirus Not Detected (Not Detect); Influenza A Subtype 2009 H1 Not Detected (Not Detect); Influenza B Not Detected (Not Detect); Mycoplasma pneumoniae Not Detected (Not Detect); Parainfluenza Virus 1 Not Detected (Not Detect); Parainfluenza Virus 2 Not Detected (Not Detect); Parainfluenza Virus 3 Not Detected (Not Detect); Parainfluenza Virus 4 Not Detected (Not Detect); Respiratory Syncytial Virus Not Detected (Not Detect); SARS-CoV-2 Not Detected (Not Detect)
[2020-04-06 06:55] LABS: Hematocrit 34.5 % (35.3-44.9); Hemoglobin 10.9 g/dL (11.5-15.4); Mean Corpuscular HGB Conc 31.6 g/dL (31.6-35.5); Mean Corpuscular Hemoglobin 30.5 pg (28.0-33.3); Mean Corpuscular Volume 96.6 fL (83.0-100.0); Mean Platelet Volume 9.1 fL (9.4-12.4); Platelet Count 255 K/mcL (140-400); Red Blood Count 3.57 M/mcL (3.82-4.97); Red Cell Distribution Width 12.9 % (11.5-14.5); White Blood Count 7.2 K/mcL (4.3-11.1)
[2020-04-06 07:10] LABS: BUN/Creatinine Ratio 31 (6-26); Blood Urea Nitrogen 22 mg/dL (6-20); Calcium 9.1 mg/dL (8.6-10.3); Carbon Dioxide 28 mEq/L (23-29); Chloride 102 mEq/L (98-107); Glucose 111 mg/dL (70-105); Osmolality,Calculated 284 (280-300); Potassium 3.9 mEq/L (3.5-5.1); Sodium 135 mEq/L (136-145); eGFR For African Americans > 60 (> 60); eGFR For Non-African Americans > 60 (> 60)
[2020-04-06] MEDS: carBAMazepine 200 MG TABLET PO SCH ×2 (08:17→20:12)
[2020-04-06] MEDS: Gabapentin 300 MG CAPSULE PO SCH ×2 (08:17→20:11)
[2020-04-06] MEDS: Baclofen 10 MG TABLET PO SCH ×2 (08:18→20:13)
[2020-04-06] MEDS: BuPROPion XL (24 HR) 150 MG TABLET PO SCH (08:18)
[2020-04-06] MEDS: Cholecalciferol (D-3) 1,000 UNIT (25MCG) TABLET PO SCH (08:18)
[2020-04-06] MEDS: Methadone Oral Concentrate 50 MG/5 ML UDC PO SCH (08:18)
[2020-04-06] MEDS: Lactobacillus 1 EACH CAP.SPRINK PO SCH ×2 (08:18→20:11)
[2020-04-06] MEDS: hydrOXYzine pamoate 25 MG CAPSULE PO PRN ×2 (09:31→20:12)
[2020-04-06] MEDS ORDERED: Lidocaine -MPF 4% 5 ML AMPUL ONE (14:32)
[2020-04-06] MEDS ORDERED: *HR* Propofol 200 MG/20 ML VIAL IVP ONE (14:40)
[2020-04-06] MEDS ORDERED: *HR* FentaNYL (PF) 100 MCG/2 ML VIAL ONE (14:40)
[2020-04-06] MEDS ORDERED: *HR* Midazolam HCl 2 MG/2 ML VIAL ONE (14:40)
[2020-04-06] MEDS ORDERED: *HR* Rocuronium Bromide 50 MG/5 ML VIAL ONE (14:42)
[2020-04-06] MEDS ORDERED: *HR* Succinylcholine 200 MG/10 ML VIAL IVP ONE (14:42)
[2020-04-06] MEDS ORDERED: Dexamethasone 4 MG/ML VIAL ONE (14:42)
[2020-04-06] MEDS ORDERED: Ondansetron 4 MG/2 ML VIAL ONE (14:42)
[2020-04-06] MEDS ORDERED: Lidocaine -MPF 2% 2 ML VIAL ONE (14:43)
[2020-04-06] MEDS ORDERED: ROPIVACAINE/PF/NS 0.25% 1 EACH SYRINGE INTRAART ONE (14:47)
[2020-04-06] MEDS ORDERED: Ropivacaine/PF 0.5% 30 ML VIAL ONE (14:47)
[2020-04-06] MEDS ORDERED: Ondansetron 4 MG/2 ML VIAL IVP PRN ×2 (14:58→18:46)
[2020-04-06] MEDS ORDERED: *HR* OxyCODONE Immed Rel 5 MG TABLET PO PRN (14:58)
[2020-04-06] MEDS ORDERED: *HR* HYDROmorphone PF 0.5 MG/0.5 ML SYRINGE IVP PRN (14:58)
[2020-04-06] MEDS ORDERED: Ringers Solution, Lactated 1,000 ML IVC SCH (15:00)
[2020-04-06] MEDS ORDERED: *HR* PHENYLEPHRINE 1,000 MCG/10 ML SYRINGE IVP ONE (16:24)
[2020-04-06] MEDS ORDERED: Ipratropium/Albuterol Neb 3 ML IH PRN (18:46)
[2020-04-06] MEDS ORDERED: Perflutren Lipid Microsphere 1.3 ML in 0.9 % Sodium Chloride 8.7 ML IVP PRN (18:46)
[2020-04-06] MEDS ORDERED: Naloxone 0.4 MG/ML INJ IVP PRN (18:46)
[2020-04-06] MEDS: cloNIDine HCL 0.1 MG TABLET PO SCH (20:10)
[2020-04-06] MEDS: Melatonin 3 MG TABLET PO SCH (20:11)
[2020-04-06] MEDS: (Brexpiprazole [Rexulti] 1 MG) PO SCH (20:13)
[2020-04-06] MEDS: QUEtiapine Fumarate 100 MG TABLET PO SCH (20:13)
[2020-04-06] MEDS: Nicotine 21 MG PATCH.TD24 TD SCH (23:21)
[2020-04-07 08:16] LABS: Basophils % 0.2 %; Eosinophils % 0.4 %; Hematocrit 32.9 % (35.3-44.9); Immature Granulocytes % 0.3 % (0-4); Lymphocytes # 1.3 K/mcL (0.6-4.6); Lymphocytes % 12.9 %; Mean Corpuscular HGB Conc 33.4 g/dL (31.6-35.5); Mean Corpuscular Hemoglobin 31.9 pg (28.0-33.3); Mean Corpuscular Volume 95.4 fL (83.0-100.0); Mean Platelet Volume 9.2 fL (9.4-12.4); Monocytes # 0.8 K/mcL (0.0-1.3); Monocytes % 8.1 %; Neutrophils # 8.1 K/mcL (1.6-8.9); Platelet Count 231 K/mcL (140-400); Red Blood Count 3.45 M/mcL (3.82-4.97); Red Cell Distribution Width 12.6 % (11.5-14.5); Segmented Neutrophils % 78.1 %; White Blood Count 10.3 K/mcL (4.3-11.1)
[2020-04-07 08:37] LABS: BUN/Creatinine Ratio 28 (6-26); Blood Urea Nitrogen 19 mg/dL (6-20); Calcium 8.9 mg/dL (8.6-10.3); Carbon Dioxide 29 mEq/L (23-29); Chloride 102 mEq/L (98-107); Glucose 146 mg/dL (70-105); Osmolality,Calculated 289 (280-300); Sodium 137 mEq/L (136-145); eGFR For African Americans > 60 (> 60); eGFR For Non-African Americans > 60 (> 60)
[2020-04-07] MEDS: Baclofen 10 MG TABLET PO SCH ×3 (09:03→20:24)
[2020-04-07] MEDS: BuPROPion XL (24 HR) 150 MG TABLET PO SCH (09:03)
[2020-04-07] MEDS: Lactobacillus 1 EACH CAP.SPRINK PO SCH ×2 (09:03→20:19)
[2020-04-07] MEDS: Cholecalciferol (D-3) 1,000 UNIT (25MCG) TABLET PO SCH (09:03)
[2020-04-07] MEDS: Gabapentin 300 MG CAPSULE PO SCH ×3 (09:03→20:23)
[2020-04-07] MEDS: carBAMazepine 200 MG TABLET PO SCH ×2 (09:04→20:21)
[2020-04-07] MEDS: Methadone Oral Concentrate 50 MG/5 ML UDC PO SCH (09:04)
[2020-04-07] MEDS: Ketorolac 30 MG/ML VIAL IVP PRN ×2 (11:03→17:13)
[2020-04-07] MEDS: hydrOXYzine pamoate 25 MG CAPSULE PO PRN ×2 (11:11→20:30)
[2020-04-07] MEDS: *HR* Heparin 5,000 UNIT/ML VIAL SQ SCH (17:20)
[2020-04-07] MEDS: (Brexpiprazole [Rexulti] 1 MG) PO SCH (20:16)
[2020-04-07] MEDS: cloNIDine HCL 0.1 MG TABLET PO SCH (20:20)
[2020-04-07] MEDS: Melatonin 3 MG TABLET PO SCH (20:22)
[2020-04-07] MEDS: QUEtiapine Fumarate 100 MG TABLET PO SCH (20:23)
[2020-04-08] MEDS: Ketorolac 30 MG/ML VIAL IVP PRN ×4 (00:10→20:12)
[2020-04-08] MEDS: Nicotine 21 MG PATCH.TD24 TD SCH ×2 (00:11→23:29)
[2020-04-08] MEDS: Acetaminophen 325 MG TABLET PO PRN (03:33)
[2020-04-08] MEDS: *HR* Heparin 5,000 UNIT/ML VIAL SQ SCH ×2 (05:37→17:38)
[2020-04-08] MEDS ORDERED: METHADONE PO SCH (09:00)
[2020-04-08 09:17] LABS: Basophils # 0.1 K/mcL (0.0-0.2); Basophils % 0.6 %; Eosinophils # 0.2 K/mcL (0.0-0.6); Eosinophils % 2.4 %; Hematocrit 36.2 % (35.3-44.9); Hemoglobin 11.5 g/dL (11.5-15.4); Immature Granulocytes % 0.4 % (0-4); Lymphocytes # 2.3 K/mcL (0.6-4.6); Lymphocytes % 29.2 %; Mean Corpuscular HGB Conc 31.8 g/dL (31.6-35.5); Mean Corpuscular Hemoglobin 31.3 pg (28.0-33.3); Mean Corpuscular Volume 98.4 fL (83.0-100.0); Monocytes # 0.6 K/mcL (0.0-1.3); Monocytes % 7.5 %; Neutrophils # 4.7 K/mcL (1.6-8.9); Platelet Count 250 K/mcL (140-400); Red Blood Count 3.68 M/mcL (3.82-4.97); Red Cell Distribution Width 13.1 % (11.5-14.5); Segmented Neutrophils % 59.9 %; White Blood Count 7.9 K/mcL (4.3-11.1)
[2020-04-08] MEDS: Baclofen 10 MG TABLET PO SCH ×3 (09:28→20:18)
[2020-04-08] MEDS: BuPROPion XL (24 HR) 150 MG TABLET PO SCH (09:28)
[2020-04-08] MEDS: Lactobacillus 1 EACH CAP.SPRINK PO SCH ×2 (09:28→20:15)
[2020-04-08] MEDS: Cholecalciferol (D-3) 1,000 UNIT (25MCG) TABLET PO SCH (09:28)
[2020-04-08] MEDS: carBAMazepine 200 MG TABLET PO SCH ×2 (09:28→20:17)
[2020-04-08] MEDS: Gabapentin 300 MG CAPSULE PO SCH ×3 (09:29→20:18)
[2020-04-08] MEDS: hydrOXYzine pamoate 25 MG CAPSULE PO PRN ×2 (09:29→17:39)
[2020-04-08] MEDS: Methadone Oral Concentrate 50 MG/5 ML UDC PO SCH (09:30)
[2020-04-08 09:38] LABS: BUN/Creatinine Ratio 27 (6-26); Blood Urea Nitrogen 21 mg/dL (6-20); Calcium 8.7 mg/dL (8.6-10.3); Carbon Dioxide 26 mEq/L (23-29); Chloride 106 mEq/L (98-107); Glucose 172 mg/dL (70-105); Osmolality,Calculated 295 (280-300); Potassium 3.7 mEq/L (3.5-5.1); Sodium 139 mEq/L (136-145); eGFR For African Americans > 60 (> 60); eGFR For Non-African Americans > 60 (> 60)
[2020-04-08] MEDS: cloNIDine HCL 0.1 MG TABLET PO SCH (20:16)
[2020-04-08] MEDS: QUEtiapine Fumarate 100 MG TABLET PO SCH (20:19)
[2020-04-08] MEDS: Melatonin 3 MG TABLET PO SCH (20:20)
[2020-04-08] MEDS: (Brexpiprazole [Rexulti] 1 MG) PO SCH (22:35)
[2020-04-09] MEDS: Ketorolac 30 MG/ML VIAL IVP PRN ×4 (02:50→21:20)
[2020-04-09] MEDS: *HR* Heparin 5,000 UNIT/ML VIAL SQ SCH ×2 (05:26→17:48)
[2020-04-09 06:29] LABS: Basophils % 0.7 %; Eosinophils # 0.2 K/mcL (0.0-0.6); Eosinophils % 3.6 %; Hematocrit 32.9 % (35.3-44.9); Hemoglobin 10.5 g/dL (11.5-15.4); Immature Granulocytes % 0.5 % (0-4); Lymphocytes # 1.7 K/mcL (0.6-4.6); Lymphocytes % 27.2 %; Mean Corpuscular HGB Conc 31.9 g/dL (31.6-35.5); Mean Corpuscular Hemoglobin 31.5 pg (28.0-33.3); Mean Corpuscular Volume 98.8 fL (83.0-100.0); Mean Platelet Volume 9.4 fL (9.4-12.4); Monocytes # 0.6 K/mcL (0.0-1.3); Monocytes % 9.1 %; Neutrophils # 3.6 K/mcL (1.6-8.9); Platelet Count 233 K/mcL (140-400); Red Blood Count 3.33 M/mcL (3.82-4.97); Segmented Neutrophils % 58.9 %; White Blood Count 6.2 K/mcL (4.3-11.1)
[2020-04-09 06:48] LABS: BUN/Creatinine Ratio 26 (6-26); Blood Urea Nitrogen 20 mg/dL (6-20); Calcium 9.4 mg/dL (8.6-10.3); Carbon Dioxide 25 mEq/L (23-29); Chloride 105 mEq/L (98-107); Glucose 135 mg/dL (70-105); Osmolality,Calculated 291 (280-300); Potassium 4.1 mEq/L (3.5-5.1); Sodium 138 mEq/L (136-145); eGFR For African Americans > 60 (> 60); eGFR For Non-African Americans > 60 (> 60)
[2020-04-09] MEDS ORDERED: 0.9 % Sodium Chloride 500 ML IVC ONE (08:37)
[2020-04-09] MEDS: Lactobacillus 1 EACH CAP.SPRINK PO SCH ×2 (09:24→21:10)
[2020-04-09] MEDS: Cholecalciferol (D-3) 1,000 UNIT (25MCG) TABLET PO SCH (09:24)
[2020-04-09] MEDS: Gabapentin 300 MG CAPSULE PO SCH ×3 (09:25→21:09)
[2020-04-09] MEDS: Baclofen 10 MG TABLET PO SCH ×3 (09:25→21:15)
[2020-04-09] MEDS: BuPROPion XL (24 HR) 150 MG TABLET PO SCH (09:25)
[2020-04-09] MEDS: carBAMazepine 200 MG TABLET PO SCH ×2 (09:26→21:15)
[2020-04-09] MEDS: Methadone Oral Concentrate 50 MG/5 ML UDC PO SCH (10:17)
[2020-04-09] MEDS: hydrOXYzine pamoate 25 MG CAPSULE PO PRN ×2 (12:58→21:20)
[2020-04-09] MEDS: Melatonin 3 MG TABLET PO SCH (21:10)
[2020-04-09] MEDS: QUEtiapine Fumarate 100 MG TABLET PO SCH (21:10)
[2020-04-09] MEDS: cloNIDine HCL 0.1 MG TABLET PO SCH (21:11)
[2020-04-09] MEDS: (Brexpiprazole [Rexulti] 1 MG) PO SCH (21:12)
[2020-04-10] MEDS: Nicotine 21 MG PATCH.TD24 TD SCH ×2 (03:54→23:57)
[2020-04-10] MEDS: Ketorolac 30 MG/ML VIAL IVP PRN ×4 (03:55→23:57)
[2020-04-10] MEDS: *HR* Heparin 5,000 UNIT/ML VIAL SQ SCH ×2 (05:24→16:45)
[2020-04-10 08:31] LABS: Hematocrit 33.7 % (35.3-44.9); Hemoglobin 10.9 g/dL (11.5-15.4); Mean Corpuscular HGB Conc 32.3 g/dL (31.6-35.5); Mean Corpuscular Hemoglobin 31.1 pg (28.0-33.3); Mean Corpuscular Volume 96.3 fL (83.0-100.0); Mean Platelet Volume 8.9 fL (9.4-12.4); Platelet Count 223 K/mcL (140-400); Red Cell Distribution Width 12.7 % (11.5-14.5); White Blood Count 6.6 K/mcL (4.3-11.1)
[2020-04-10 08:51] LABS: BUN/Creatinine Ratio 23 (6-26); Blood Urea Nitrogen 17 mg/dL (6-20); Carbon Dioxide 27 mEq/L (23-29); Chloride 105 mEq/L (98-107); Glucose 118 mg/dL (70-105); Magnesium 1.7 mg/dL (1.6-2.6); Osmolality,Calculated 289 (280-300); Phosphorous 4.3 mg/dL (2.7-4.5); Potassium 4.3 mEq/L (3.5-5.1); Sodium 138 mEq/L (136-145); eGFR For African Americans > 60 (> 60); eGFR For Non-African Americans > 60 (> 60)
[2020-04-10] MEDS: carBAMazepine 200 MG TABLET PO SCH ×2 (09:06→20:07)
[2020-04-10] MEDS: Cholecalciferol (D-3) 1,000 UNIT (25MCG) TABLET PO SCH (09:07)
[2020-04-10] MEDS: Baclofen 10 MG TABLET PO SCH ×3 (09:08→20:06)
[2020-04-10] MEDS: BuPROPion XL (24 HR) 150 MG TABLET PO SCH (09:08)
[2020-04-10] MEDS: Gabapentin 300 MG CAPSULE PO SCH ×3 (09:08→20:06)
[2020-04-10] MEDS: Lactobacillus 1 EACH CAP.SPRINK PO SCH ×2 (09:09→20:06)
[2020-04-10] MEDS: Methadone Oral Concentrate 50 MG/5 ML UDC PO SCH (09:10)
[2020-04-10] MEDS: QUEtiapine Fumarate 100 MG TABLET PO SCH (20:05)
[2020-04-10] MEDS: Melatonin 3 MG TABLET PO SCH (20:06)
[2020-04-10] MEDS: cloNIDine HCL 0.1 MG TABLET PO SCH (20:07)
[2020-04-10] MEDS: (Brexpiprazole [Rexulti] 1 MG) PO SCH (20:11)
[2020-04-10] MEDS: hydrOXYzine pamoate 25 MG CAPSULE PO PRN (20:19)
[2020-04-11] MEDS: *HR* Heparin 5,000 UNIT/ML VIAL SQ SCH ×2 (05:38→19:31)
[2020-04-11] MEDS: Ketorolac 30 MG/ML VIAL IVP PRN ×3 (06:22→19:30)
[2020-04-11 07:01] LABS: Hematocrit 33.8 % (35.3-44.9); Hemoglobin 10.7 g/dL (11.5-15.4); Mean Corpuscular HGB Conc 31.7 g/dL (31.6-35.5); Mean Platelet Volume 8.8 fL (9.4-12.4); Platelet Count 251 K/mcL (140-400); Red Blood Count 3.45 M/mcL (3.82-4.97); Red Cell Distribution Width 12.7 % (11.5-14.5); White Blood Count 6.6 K/mcL (4.3-11.1)
[2020-04-11 07:17] LABS: BUN/Creatinine Ratio 23 (6-26); Blood Urea Nitrogen 18 mg/dL (6-20); Calcium 8.9 mg/dL (8.6-10.3); Carbon Dioxide 26 mEq/L (23-29); Chloride 105 mEq/L (98-107); Glucose 107 mg/dL (70-105); Magnesium 2.1 mg/dL (1.6-2.6); Osmolality,Calculated 288 (280-300); Phosphorous 4.3 mg/dL (2.7-4.5); Potassium 4.3 mEq/L (3.5-5.1); Sodium 138 mEq/L (136-145); eGFR For African Americans > 60 (> 60); eGFR For Non-African Americans > 60 (> 60)
[2020-04-11] MEDS: Cholecalciferol (D-3) 1,000 UNIT (25MCG) TABLET PO SCH (09:27)
[2020-04-11] MEDS: BuPROPion XL (24 HR) 150 MG TABLET PO SCH (09:27)
[2020-04-11] MEDS: carBAMazepine 200 MG TABLET PO SCH ×2 (09:27→20:39)
[2020-04-11] MEDS: Baclofen 10 MG TABLET PO SCH ×3 (09:28→20:39)
[2020-04-11] MEDS: Methadone Oral Concentrate 50 MG/5 ML UDC PO SCH (09:28)
[2020-04-11] MEDS: Lactobacillus 1 EACH CAP.SPRINK PO SCH ×2 (09:28→20:39)
[2020-04-11] MEDS: Gabapentin 300 MG CAPSULE PO SCH ×3 (09:34→20:38)
[2020-04-11] MEDS: hydrOXYzine pamoate 25 MG CAPSULE PO PRN (09:34)
[2020-04-11] MEDS: cloNIDine HCL 0.1 MG TABLET PO SCH (20:38)
[2020-04-11] MEDS: Melatonin 3 MG TABLET PO SCH (20:38)
[2020-04-11] MEDS: QUEtiapine Fumarate 100 MG TABLET PO SCH (20:39)
[2020-04-11] MEDS: (Brexpiprazole [Rexulti] 1 MG) PO SCH (20:40)
[2020-04-11] MEDS: Nicotine 21 MG PATCH.TD24 TD SCH (23:41)
[2020-04-12 05:10] LABS: Hematocrit 33.9 % (35.3-44.9); Hemoglobin 10.7 g/dL (11.5-15.4); Mean Corpuscular HGB Conc 31.6 g/dL (31.6-35.5); Mean Corpuscular Hemoglobin 30.6 pg (28.0-33.3); Mean Corpuscular Volume 96.9 fL (83.0-100.0); Platelet Count 230 K/mcL (140-400); Red Cell Distribution Width 12.5 % (11.5-14.5); White Blood Count 5.7 K/mcL (4.3-11.1)
[2020-04-12] MEDS: Ketorolac 30 MG/ML VIAL IVP PRN (05:17)
[2020-04-12] MEDS: *HR* Heparin 5,000 UNIT/ML VIAL SQ SCH (05:18)
[2020-04-12 05:28] LABS: BUN/Creatinine Ratio 26 (6-26); Blood Urea Nitrogen 21 mg/dL (6-20); Calcium 8.7 mg/dL (8.6-10.3); Carbon Dioxide 27 mEq/L (23-29); Chloride 105 mEq/L (98-107); Glucose 108 mg/dL (70-105); Magnesium 2.1 mg/dL (1.6-2.6); Osmolality,Calculated 290 (280-300); Phosphorous 4.6 mg/dL (2.7-4.5); Potassium 4.4 mEq/L (3.5-5.1); Sodium 138 mEq/L (136-145); eGFR For African Americans > 60 (> 60); eGFR For Non-African Americans > 60 (> 60)
[2020-04-12] MEDS: carBAMazepine 200 MG TABLET PO SCH (08:08)
[2020-04-12] MEDS: Lactobacillus 1 EACH CAP.SPRINK PO SCH (08:08)
[2020-04-12] MEDS: BuPROPion XL (24 HR) 150 MG TABLET PO SCH (08:08)
[2020-04-12] MEDS: Gabapentin 300 MG CAPSULE PO SCH ×2 (08:09→14:33)
[2020-04-12] MEDS: Cholecalciferol (D-3) 1,000 UNIT (25MCG) TABLET PO SCH (08:09)
[2020-04-12] MEDS: Baclofen 10 MG TABLET PO SCH ×2 (08:09→14:33)
[2020-04-12] MEDS: Methadone Oral Concentrate 50 MG/5 ML UDC PO SCH (08:09)
[2020-04-12] MEDS: hydrOXYzine pamoate 25 MG CAPSULE PO PRN (10:58)
[2020-04-12] MEDS: Acetaminophen 325 MG TABLET PO PRN (11:26)
[2020-04-12 12:37] VITALS: BP 108/73
== END 2020-04-12 15:34 | disposition home health service (06) | DRG 313 ==
LOC: EMEROOARM 17:54 → 3NENU 17:54 → SUATTDRO 21:54 → 3NENU 22:48 → SUATTDRO 03-24 16:31 → 3ANU 03-26 16:34
PROVIDERS: ADMIT Student in an Organized Health Care Education/Training Program; ATTEND Internal Medicine

== ENCOUNTER 2020-12-17 06:18 | Inpatient (IN) ==
[2020-12-17] MEDS ORDERED: *HR* LORazepam 2 MG/ML VIAL ONE (06:21)
[2020-12-17] MEDS ORDERED: *HR* LORazepam 2 MG/ML VIAL IVP ONE ×2 (06:22→07:23)
[2020-12-17] MEDS ORDERED: Haloperidol Lactate 5 MG/ML VIAL IVP ONE (06:22)
[2020-12-17] MEDS ORDERED: *HR* LORazepam 2 MG/ML VIAL IM ONE ×3 (06:33→07:23)
[2020-12-17] MEDS ORDERED: Haloperidol Lactate 5 MG/ML VIAL IM ONE ×2 (06:45→07:24)
[2020-12-17] MEDS ORDERED: OLANZapine 10 MG VIAL IM ONE (06:54)
[2020-12-17] MEDS ORDERED: diazePAM 10 MG/2 ML SYRINGE IM ONE (07:48)
[2020-12-17 09:18] LABS: White Blood Count 9.2 K/mcL (4.3-11.1)
[2020-12-17 09:19] LABS: Basophils # 0.1 K/mcL (0.0-0.2); Basophils % 0.5 %; Eosinophils % 0.4 %; Hematocrit 40.8 % (35.3-44.9); Hemoglobin 13.4 g/dL (11.5-15.4); Immature Granulocytes % 0.4 % (0-4); Lymphocytes # 1.1 K/mcL (0.6-4.6); Lymphocytes % 11.4 %; Mean Corpuscular HGB Conc 32.8 g/dL (31.6-35.5); Mean Corpuscular Hemoglobin 31.5 pg (28.0-33.3); Mean Corpuscular Volume 95.8 fL (83.0-100.0); Mean Platelet Volume 9.3 fL (9.4-12.4); Monocytes # 0.4 K/mcL (0.0-1.3); Monocytes % 4.7 %; Neutrophils # 7.6 K/mcL (1.6-8.9); Platelet Count 252 K/mcL (140-400); Red Blood Count 4.26 M/mcL (3.82-4.97); Red Cell Distribution Width 13.1 % (11.5-14.5); Segmented Neutrophils % 82.6 %
[2020-12-17 09:38] LABS: Acetaminophen < 10 mcg/mL (10-20); BUN/Creatinine Ratio 21 (6-26); Blood Urea Nitrogen 21 mg/dL (6-20); Calcium 9.7 mg/dL (8.6-10.3); Carbon Dioxide 25 mEq/L (23-29); Chloride 106 mEq/L (98-107); Ethanol < 10 mg/dL (Less than 10); Glucose 142 mg/dL (70-105); Osmolality,Calculated 305 (280-300); Potassium 3.7 mEq/L (3.5-5.1); Salicylate < 2.5 mg/dL (15.0-30.0); Sodium 145 mEq/L (136-145); eGFR For African Americans > 60 (> 60); eGFR For Non-African Americans 59 (> 60)
[2020-12-17 09:51] LABS: Bilirubin,Urine Negative (Negative); Blood,Urine Negative (Negative); Clarity,Urine Clear (Clear); Color,Urine Yellow (Yellow); Glucose,Urine (UA) Normal (Normal); Hyaline Casts,Urine Few per lpf (None Seen); Ketones,Urine Trace mg/dL (Negative); Leukocyte Esterase,Urine Negative (Negative); Mucus,Urine Many per lpf (None-Few); Nitrite,Urine Negative (Negative); PH,Urine 6.5 pH Units (5.0-8.0); Protein,Urine 100 mg/dL (Neg-Trace); RBC,Urine 0-3 per hpf (0-3); Specific Gravity,Urine > 1.030 (1.010-1.025); Squamous Epithelial Cell,Urine Few per hpf (None-Few); WBC,Urine 0-3 per hpf (0-3)
[2020-12-17 09:57] LABS: Amphetamine Screen,Urine Positive ng/mL (Cutoff=1000); Barbiturate Screen,Urine Positive ng/mL (Cutoff=200); Benzodiazepines Screen,Urine Negative ng/mL (Cutoff=200); Cannabinoid Screen,Urine Positive ng/mL (Cutoff = 50); Cocaine Screen,Urine Negative ng/mL (Cutoff= 300); Opiate Screen,Urine Negative ng/mL (Cutoff=300); Phencyclidine Screen,Urine Negative ng/mL (Cutoff=25)
[2020-12-17] MEDS ORDERED: diazePAM 10 MG/2 ML SYRINGE IVP ONE (15:34)
[2020-12-17] MEDS ORDERED: Naloxone 0.4 MG/ML INJ IVP PRN (17:30)
[2020-12-17] MEDS ORDERED: Ondansetron 4 MG/2 ML VIAL IVP PRN (17:30)
[2020-12-17] MEDS ORDERED: 0.9 % Sodium Chloride 1,000 ML IVC SCH (17:30)
[2020-12-17] MEDS: *HR* LORazepam 2 MG/ML VIAL IVP PRN (20:51)
[2020-12-17] MEDS: *HR* Heparin 5,000 UNIT/ML VIAL SQ SCH (21:55)
[2020-12-18] MEDS: Haloperidol Lactate 5 MG/ML VIAL IVP PRN ×2 (00:34→10:24)
[2020-12-18 02:56] LABS: Basophils # 0.1 K/mcL (0.0-0.2); Basophils % 0.5 %; Eosinophils % 0.3 %; Hematocrit 40.2 % (35.3-44.9); Hemoglobin 13.1 g/dL (11.5-15.4); Immature Granulocytes % 0.4 % (0-4); Lymphocytes # 1.3 K/mcL (0.6-4.6); Lymphocytes % 12.1 %; Mean Corpuscular HGB Conc 32.6 g/dL (31.6-35.5); Mean Corpuscular Hemoglobin 31.3 pg (28.0-33.3); Mean Corpuscular Volume 95.9 fL (83.0-100.0); Mean Platelet Volume 9.3 fL (9.4-12.4); Monocytes # 0.8 K/mcL (0.0-1.3); Monocytes % 7.3 %; Neutrophils # 8.7 K/mcL (1.6-8.9); Platelet Count 250 K/mcL (140-400); Red Blood Count 4.19 M/mcL (3.82-4.97); Red Cell Distribution Width 13.2 % (11.5-14.5); Segmented Neutrophils % 79.4 %; White Blood Count 10.9 K/mcL (4.3-11.1)
[2020-12-18 03:11] LABS: BUN/Creatinine Ratio 26 (6-26); Blood Urea Nitrogen 21 mg/dL (6-20); Calcium 9.5 mg/dL (8.6-10.3); Carbon Dioxide 24 mEq/L (23-29); Chloride 108 mEq/L (98-107); Glucose 134 mg/dL (70-105); Osmolality,Calculated 303 (280-300); Potassium 3.7 mEq/L (3.5-5.1); Sodium 144 mEq/L (136-145); eGFR For African Americans > 60 (> 60); eGFR For Non-African Americans > 60 (> 60)
[2020-12-18] MEDS ORDERED: *HR* LORazepam 2 MG/ML VIAL IVP ONE (03:12)
[2020-12-18] MEDS: *HR* Heparin 5,000 UNIT/ML VIAL SQ SCH ×3 (05:11→21:43)
[2020-12-18] MEDS: *HR* LORazepam 2 MG/ML VIAL IVP PRN (10:40)
[2020-12-18] MEDS: Methadone Oral Concentrate 50 MG/5 ML UDC PO SCH (14:16)
[2020-12-19] MEDS ORDERED: Ketorolac 30 MG/ML VIAL IVP ONE (05:19)
[2020-12-19] MEDS: *HR* Heparin 5,000 UNIT/ML VIAL SQ SCH (05:53)
[2020-12-19] MEDS ORDERED: Dextrose Gel 15 GM/37.5 ML TUBE PO PRN ×2 (08:15)
[2020-12-19] MEDS ORDERED: *HR* Dextrose 50 % in Water (Vial) 50 ML VIAL IVP PRN (08:15)
[2020-12-19] MEDS ORDERED: D5% in Water 1,000 ML IVC PRN (08:15)
[2020-12-19] MEDS: Methadone Oral Concentrate 50 MG/5 ML UDC PO SCH (08:56)
[2020-12-19 09:26] LABS: Basophils % 0.4 %; Eosinophils % 0.4 %; Hematocrit 41.4 % (35.3-44.9); Hemoglobin 13.6 g/dL (11.5-15.4); Immature Granulocytes % 0.3 % (0-4); Lymphocytes # 2.1 K/mcL (0.6-4.6); Lymphocytes % 21.8 %; Mean Corpuscular HGB Conc 32.9 g/dL (31.6-35.5); Mean Corpuscular Hemoglobin 31.5 pg (28.0-33.3); Mean Corpuscular Volume 95.8 fL (83.0-100.0); Mean Platelet Volume 9.6 fL (9.4-12.4); Monocytes # 0.7 K/mcL (0.0-1.3); Monocytes % 7.5 %; Neutrophils # 6.5 K/mcL (1.6-8.9); Platelet Count 249 K/mcL (140-400); Red Blood Count 4.32 M/mcL (3.82-4.97); Red Cell Distribution Width 13.2 % (11.5-14.5); Segmented Neutrophils % 69.6 %; White Blood Count 9.4 K/mcL (4.3-11.1)
[2020-12-19 09:46] LABS: Alanine Aminotransferase 17 Units/L (7-52); Albumin 4.1 g/dL (3.5-5.7); Albumin/Globulin Ratio 1.1 (1.1-2.2); Alkaline Phosphatase 156 Units/L (34-104); Aspartate Amino Transferase 30 Units/L (13-39); BUN/Creatinine Ratio 29 (6-26); Bilirubin,Total 0.7 mg/dL (0.3-1.0); Blood Urea Nitrogen 25 mg/dL (6-20); Carbon Dioxide 23 mEq/L (23-29); Chloride 108 mEq/L (98-107); Globulin 3.6 g/dL (2.4-3.5); Glucose 98 mg/dL (70-105); Magnesium 2.1 mg/dL (1.6-2.6); Osmolality,Calculated 298 (280-300); Phosphorous 3.1 mg/dL (2.7-4.5); Potassium 3.5 mEq/L (3.5-5.1); Sodium 142 mEq/L (136-145); Total Protein 7.7 g/dL (6.4-8.9); eGFR For African Americans > 60 (> 60); eGFR For Non-African Americans > 60 (> 60)
[2020-12-19 11:36] VITALS: BP 143/92
[2020-12-19] MEDS ORDERED: hydrOXYzine pamoate 25 MG CAPSULE PO PRN (14:25)
[2020-12-19] MEDS ORDERED: Gabapentin 300 MG CAPSULE PO SCH (15:00)
[2020-12-19] MEDS ORDERED: cloNIDine HCL 0.1 MG TABLET PO SCH (21:00)
[2020-12-19] MEDS ORDERED: Aspirin Enteric Coated 325 MG Tablet PO SCH (21:00)
[2020-12-19] MEDS ORDERED: carBAMazepine 200 MG TABLET PO SCH (21:00)
[2020-12-19] MEDS ORDERED: Melatonin 3 MG TABLET PO SCH (21:00)
[2020-12-19] MEDS ORDERED: QUEtiapine Fumarate 100 MG TABLET PO SCH (21:00)
[2020-12-20] MEDS ORDERED: BuPROPion XL (24 HR) 150 MG TABLET PO SCH (09:00)
[2020-12-20] MEDS ORDERED: (Brexpiprazole [Rexulti] 1 MG Tablet) PO SCH (09:00)
== END 2020-12-19 16:39 | disposition home or self-care (01) | DRG 753 ==
LOC: EMEROOARM 06:18 → 3NENU 06:18 → SUATTDRO 17:49 → 3NENU 18:14 → SUATTDRO 12-18 16:49
PROVIDERS: ADMIT Internal Medicine; ATTEND Internal Medicine

== ENCOUNTER 2022-03-22 21:03 | Inpatient (IN) ==
[2022-03-22] MEDS ORDERED: Iopamidol - 370 500 ML MLS IVP ONE (23:09)
[2022-03-22] MEDS ORDERED: Ipratropium/Albuterol Neb 3 ML IH ONE (23:23)
[2022-03-22] MEDS ORDERED: Lidocaine -MPF 2% 2 ML VIAL INFILT ONE (23:32)
[2022-03-22 23:49] LABS: Basophils # 0.1 K/mcL (0.0-0.2); Basophils % 0.5 %; Eosinophils # 0.2 K/mcL (0.0-0.6); Eosinophils % 1.4 %; Hematocrit 37.8 % (35.3-44.9); Hemoglobin 12.3 g/dL (11.5-15.4); Immature Granulocytes % 0.4 % (0-4); Lymphocytes # 1.7 K/mcL (0.6-4.6); Lymphocytes % 14.4 %; Mean Corpuscular HGB Conc 32.5 g/dL (31.6-35.5); Mean Corpuscular Hemoglobin 31.5 pg (28.0-33.3); Mean Corpuscular Volume 96.9 fL (83.0-100.0); Mean Platelet Volume 9.3 fL (9.4-12.4); Monocytes # 0.8 K/mcL (0.0-1.3); Monocytes % 6.9 %; Neutrophils # 8.8 K/mcL (1.6-8.9); Platelet Count 228 K/mcL (140-400); Red Cell Distribution Width 13.5 % (11.5-14.5); Segmented Neutrophils % 76.4 %; White Blood Count 11.5 K/mcL (4.3-11.1)
[2022-03-22 23:51] LABS: ABG Base Excess 3 mEq/L (-2 to 3); ABG HCO3 30 mEq/L (21-27); ABG Oxygen Saturation 80 % (95-98); ABG PCO2 55 mmHg (35-45); ABG PH 7.35 pH Units (7.32-7.45); ABG PO2 48 mmHg (85-104); ABG TCO2 32 mEq/L (20-26)
[2022-03-22 23:57] LABS: Alanine Aminotransferase 12 Units/L (7-52); Albumin 3.9 g/dL (3.5-5.7); Albumin/Globulin Ratio 1.1 (1.1-2.2); Alkaline Phosphatase 130 Units/L (34-104); Aspartate Amino Transferase 14 Units/L (13-39); BUN/Creatinine Ratio 20 (6-26); Bilirubin,Total 0.5 mg/dL (0.3-1.0); Blood Urea Nitrogen 17 mg/dL (6-20); Calcium 9.4 mg/dL (8.6-10.3); Carbon Dioxide 30 mEq/L (23-29); Chloride 100 mEq/L (98-107); Globulin 3.4 g/dL (2.4-3.5); Glucose 128 mg/dL (70-105); Magnesium 1.9 mg/dL (1.6-2.6); Osmolality,Calculated 285 (280-300); Potassium 4.2 mEq/L (3.5-5.1); Sodium 136 mEq/L (136-145); Total Protein 7.3 g/dL (6.4-8.9); Troponin I < 0.03 ng/mL (< 0.04)
[2022-03-23 00:08] LABS: Influenza A PCR Negative (Negative); Influenza B PCR Negative (Negative); Resp. Syncytial Virus PCR Negative (Negative)
[2022-03-23 00:09] LABS: SARS-CoV-2 by PCR (In House) Negative (Negative)
[2022-03-23] MEDS ORDERED: MetroNIDAZOLE 500 MG/100 ML 500 MG/100 ML BAG IVPB ONE (00:18)
[2022-03-23 00:44] LABS: Bacteria,Urine Moderate per hpf (None-Few); Bilirubin,Urine Negative (Negative); Blood,Urine Negative (Negative); Clarity,Urine Turbid (Clear); Color,Urine Yellow (Yellow); Glucose,Urine (UA) Normal (Normal); Ketones,Urine Trace mg/dL (Negative); Leukocyte Esterase,Urine Small (Negative); Mucus,Urine Few per lpf (None-Few); Nitrite,Urine Positive (Negative); PH,Urine 6.5 pH Units (5.0-8.0); Protein,Urine 50 mg/dL (Neg-Trace); RBC,Urine 0-3 per hpf (0-3); Specific Gravity,Urine 1.025 (1.010-1.025); Squamous Epithelial Cell,Urine Few per hpf (None-Few); Urobilinogen,Urine Normal (Normal); WBC,Urine 15-30 per hpf (0-3)
[2022-03-23 01:07] LABS: Amphetamine Screen,Urine Positive ng/mL (Cutoff=1000); Barbiturate Screen,Urine Negative ng/mL (Cutoff=200); Benzodiazepines Screen,Urine Negative ng/mL (Cutoff=200); Cannabinoid Screen,Urine Positive ng/mL (Cutoff = 50); Cocaine Screen,Urine Negative ng/mL (Cutoff= 300); Opiate Screen,Urine Negative ng/mL (Cutoff=300); Phencyclidine Screen,Urine Negative ng/mL (Cutoff=25)
[2022-03-23] MEDS ORDERED: *HR* Heparin 5,000 UNIT/ML VIAL IVP PRN ×2 (01:36)
[2022-03-23] MEDS ORDERED: *HR* Heparin 5,000 UNIT/ML VIAL IVP ONE (01:36)
[2022-03-23] MEDS ORDERED: Heparin 25,000UNIT/250ML 1/2NS 25,000 UNIT/250 ML IV.SOLN IVC SCH (01:45)
[2022-03-23] MEDS ORDERED: Meropenem 500 MG in 0.9 % Sodium Chloride Mini Bag 100 ML IVP ONE (02:20)
[2022-03-23 02:28] LABS: Hemoglobin 11.8 g/dL (11.5-15.4); Mean Corpuscular HGB Conc 32.8 g/dL (31.6-35.5); Mean Corpuscular Hemoglobin 31.8 pg (28.0-33.3); Mean Platelet Volume 9.2 fL (9.4-12.4); Platelet Count 209 K/mcL (140-400); Red Blood Count 3.71 M/mcL (3.82-4.97); Red Cell Distribution Width 13.4 % (11.5-14.5); White Blood Count 10.4 K/mcL (4.3-11.1)
[2022-03-23 02:40] LABS: Heparin anti-factor XA UFH < 0.04 IU/mL (0.30-0.70)
[2022-03-23 02:41] LABS: INR 1.2; Prothrombin Time 13.1 Seconds (9.4-12.1)
[2022-03-23] MEDS ORDERED: Melatonin 3 MG TABLET PO PRN (03:29)
[2022-03-23] MEDS ORDERED: Ondansetron ODT 4 MG TAB.RAPDIS SL PRN (03:29)
[2022-03-23] MEDS ORDERED: Naloxone 0.4 MG/ML INJ IVP PRN (03:29)
[2022-03-23] MEDS ORDERED: Nicotine 21 MG PATCH.TD24 TD SCH (09:00)
[2022-03-23] MEDS ORDERED: BREXPIPRAZOLE PO SCH (09:00)
[2022-03-23] MEDS: MethylPREDNISolone 40 MG/ML VIAL IVP SCH ×2 (09:18→15:48)
[2022-03-23] MEDS: Gabapentin 300 MG CAPSULE PO SCH ×2 (09:19→15:48)
[2022-03-23] MEDS ORDERED: Ipratropium/Albuterol Neb 3 ML IH SCH (10:00)
[2022-03-23] MEDS ORDERED: Baclofen 10 MG TABLET PO PRN (12:37)
[2022-03-23] MEDS: hydrOXYzine pamoate 25 MG CAPSULE PO PRN ×2 (13:35→18:53)
[2022-03-23] MEDS: Ipratropium/Albuterol Neb 3 ML IH SCH ×2 (14:30→15:38)
[2022-03-23 16:56] VITALS: BP 197/85; PULSE 83; TEMP 98.8; O2SAT 90
[2022-03-23] MEDS ORDERED: Apixaban 5 MG TABLET PO SCH ×2 (17:00→21:00)
[2022-03-23] MEDS ORDERED: cloNIDine HCL 0.1 MG TABLET ONE (17:58)
[2022-03-23] MEDS ORDERED: Aspirin Enteric Coated 325 MG Tablet PO SCH (21:00)
[2022-03-23] MEDS ORDERED: QUEtiapine Fumarate 300 MG TABLET PO SCH (21:00)
[2022-03-23] MEDS ORDERED: cloNIDine HCL 0.1 MG TABLET PO SCH (21:00)
[2022-03-24] MEDS ORDERED: BuPROPion XL (24 HR) 150 MG TABLET PO SCH (09:00)
== END 2022-03-23 19:30 | disposition home health service (06) | DRG 133 ==
LOC: EMEROOARM 21:03 → 2NENU 21:03 → SUATTDRO 03-23 03:46 → 2NENU 03-23 03:49
PROVIDERS: ADMIT Internal Medicine; ATTEND Student in an Organized Health Care Education/Training Program